=== PATIENT | male | born 1970 | race Caucasian/White ===

== ENCOUNTER 2016-05-27 13:15 | Outpatient (CLI) | payer OTHER | END 2016-05-27 13:16 | disposition home or self-care (01) | DX: K31.84 Gastroparesis (principal); K21.9 Gastro-esophageal reflux disease without esophagitis ==

== ENCOUNTER 2016-09-25 08:23 | Day surgery (SDC) | payer OTHER ==
[2016-09-25] MEDS ORDERED: LACTATED RINGERS 1,000 ML IV ONE (08:53)
[2016-09-25] MEDS ORDERED: fentaNYL 100 MCG/2 ML VIAL IVP ONE (09:38)
[2016-09-25] MEDS ORDERED: MIDAZOLAM 2 MG/2 ML VIAL IVP ONE (09:38)
[2016-09-25 10:44] VITALS: BP 110/80
== END 2016-09-25 08:24 | disposition home or self-care (01) ==
LOC: SDS 08:23
PROVIDERS: ATTEND Internal Medicine
PROC: 0DB28ZX Excision of Middle Esophagus, Via Natural or Artificial Opening Endoscopic, Diagnostic (ICD-10-PCS; 2016-09-25)
PROC: 0DB38ZX Excision of Lower Esophagus, Via Natural or Artificial Opening Endoscopic, Diagnostic (ICD-10-PCS; principal; 2016-09-25 09:30)
DX: R07.9 Chest pain, unspecified (principal); R14.0 Abdominal distension (gaseous); K20.9 Esophagitis, unspecified; E11.9 Type 2 diabetes mellitus without complications; I10 Essential (primary) hypertension; Z79.82 Long term (current) use of aspirin; E78.00 Pure hypercholesterolemia, unspecified; Z79.84 Long term (current) use of oral hypoglycemic drugs; K21.9 Gastro-esophageal reflux disease without esophagitis
CPT/HCPCS: 43239; J7120; 88305

== ENCOUNTER 2017-11-03 09:46 | Outpatient (CLI) | payer OTHER ==
[2017-11-03] MEDS ORDERED: IOPAMIDOL-300 50 ML VIAL ONE (10:20)
[2017-11-03] MEDS ORDERED: IOPAMIDOL-300 100 ML VIAL ONE (10:20)
[2017-11-03 10:31] LABS: CREATININE 0.9 mg/dL (0.6-1.2)
[2017-11-03] MEDS ORDERED: IOPAMIDOL-300 50 ML VIAL PO ONE (11:17)
[2017-11-03] MEDS ORDERED: IOPAMIDOL-300 100 ML VIAL IVP ONE (11:17)
--- NOTE | 2017-11-03 12:28 | CT Report ---
Procedure Date: 11/03/2017 Accession Number: [id number] / [id number] Procedure: CT - Abdomen/Pelvis W/ CPT Code: FULL RESULT: EXAM: Abdomen/Pelvis W/ DATE: 11/03/2017 11:20 AM CLINICAL HISTORY: DMII, UNSPECIFIED ABDOMINAL PAIN COMPARISON: None. TECHNIQUE: Routine helical CT imaging was performed through the abdomen and pelvis. IV contrast: 100 mL Isovue 300. Enteric contrast: Yes. Reconstructions: Coronal and sagittal. In accordance with CT protocol optimization, one or more of the following dose reduction techniques were utilized for this exam: automated exposure control, adjustment of mA and/or KV based on patient size, or use of iterative reconstructive technique. FINDINGS: Lung Bases: Unremarkable. Liver: Normal. No masses. Gallbladder/Bile Ducts: Unremarkable. Spleen: Normal. Pancreas: Normal. Adrenal Glands: Right lipid rich adrenal adenoma, benign finding requiring no follow-up. Bilateral adrenal glands are otherwise normal. Kidneys: Normal. No masses or hydronephrosis. Peritoneal Cavity/Bowel: Normal. No free fluid, free air or adenopathy. No masses or acute inflammatory process. The appendix is well visualized and normal. Pelvic Organs: Normal. The bladder and visualized pelvic organs are within normal limits. Vasculature: No aneurysms or other significant abnormality. Bones: No significant abnormality. Other: None. IMPRESSION: Acute sigmoid diverticulitis without a macro perforation or drainable abscess at this time. Lipid rich right adrenal adenoma, a benign mass requiring no further follow-up. CRITICAL RESULT Attempts to reach the office of JUDE FOWLER were made by Ghassan Moody regarding the above findings at 12:22 PM. We will continue to attempt to reach the physician. AVELINO
== END 2017-11-03 09:47 | disposition home or self-care (01) ==
LOC: LAB 09:46 → DI 09:47
PROVIDERS: ATTEND Specialist
DX: K57.32 Diverticulitis of large intestine without perforation or abscess without bleeding (principal); D35.01 Benign neoplasm of right adrenal gland
CPT/HCPCS: 36415; 74177; 82565; Q9967